=== PATIENT | female | born 1995 | race African-American/Black ===

== ENCOUNTER 2023-06-20 16:55 | Emergency (ER) | payer OTHER ==
[~2023-06-20] VITALS: Ht 180.3 cm; Wt 63.6 kg
[2023-06-20 17:19] VITALS: BP 124/73; PULSE 96; RESP 16; TEMP 97.8
== END 2023-06-20 19:15 | disposition left against medical advice (07) ==
LOC: EMS 16:56
DX: R20.0 Anesthesia of skin (principal); Z53.21 Procedure and treatment not carried out due to patient leaving prior to being seen by health care provider
CPT/HCPCS: 99281; Z7502

== ENCOUNTER 2023-10-02 12:55 | Emergency (ER) | payer OTHER ==
[~2023-10-02] VITALS: Ht 180.3 cm; Wt 59.1 kg
[2023-10-02 13:08] VITALS: BP 123/84; PULSE 88; RESP 18; TEMP 98.2
== END 2023-10-02 14:51 | disposition left against medical advice (07) ==
LOC: EMS 12:55
DX: M79.602 Pain in left arm (principal); M79.605 Pain in left leg; M54.9 Dorsalgia, unspecified; Z53.21 Procedure and treatment not carried out due to patient leaving prior to being seen by health care provider
CPT/HCPCS: 99281; Z7502

== ENCOUNTER 2023-10-19 02:07 | Emergency (ER) | payer OTHER ==
[~2023-10-19] VITALS: Ht 180.3 cm; Wt 63.6 kg
[2023-10-19 02:07] VITALS: BP 126/92; PULSE 73; RESP 16; TEMP 99.1
[2023-10-19] MEDS: TraMADol HCL 50 MG TABLET PO ONE (05:31)
[2023-10-19] MEDS ORDERED: CYCL-448 PO (06:00)
== END 2023-10-19 06:01 | disposition home or self-care (01) ==
LOC: EMS 02:08
DX: M79.18 Myalgia, other site (principal); F17.210 Nicotine dependence, cigarettes, uncomplicated; F12.90 Cannabis use, unspecified, uncomplicated; Z98.890 Other specified postprocedural states
CPT/HCPCS: 72040; 72072; 99284; Z7502; Z7610

== ENCOUNTER 2023-12-26 05:23 | Emergency (ER) | payer OTHER ==
[~2023-12-26] VITALS: Ht 165.1 cm; Wt 59.1 kg
[~2023-12-26 05:23] MED LIST: CYCL-448 PO
[2023-12-26 05:24] VITALS: TEMP 97.5
[2023-12-26] MEDS: SODIUM CHLORIDE 0.9% 1,000 ML IV ONE (06:18)
[2023-12-26 06:27] LABS: BASOPHILS % (AUTO) 2.5 % (0.0-2.0); EOSINOPHILS % (AUTO) 4.8 % (1.0-6.0); HEMATOCRIT 35.4 % (36-46); HEMOGLOBIN 11.8 g/dL (12.0-16.0); LYMPHOCYTES # (AUTO) 1.8 K/uL (1.0-4.8); LYMPHOCYTES % (AUTO) 36.6 % (22.0-44.0); MEAN CORPUSCULAR HEMOGLOBIN 29.7 pg (26.0-34.0); MEAN CORPUSCULAR HGB CONC 33.4 G/dL (31.0-37.0); MEAN CORPUSCULAR VOLUME 89 fL (80-100); MONOCYTES # (AUTO) 0.4 K/uL (0.1-1.0); MONOCYTES % (AUTO) 7.3 % (2.0-9.0); NEUTROPHILS # (AUTO) 2.5 K/uL (1.8-7.7); NEUTROPHILS % (AUTO) 48.8 % (40.0-70.0); PLATELET COUNT (AUTO) 284 K/uL (150-450); RED BLOOD CELL COUNT(AUTO) 3.99 MIL/uL (4.00-5.20); RED CELL DISTRIBUTION WIDTH 13.4 % (11.5-14.5)
[2023-12-26] MEDS: MethylPREDNISolone SOD SUCC 125 MG/2 ML VIAL IVP ONE (06:30)
[2023-12-26] MEDS: FAMOTIDINE 20 MG/2 ML VIAL IVP ONE (06:31)
[2023-12-26 06:38] LABS: ALCOHOL, BLOOD (SERUM) < 3 mg/dL (0-10); ANION GAP 5 mmol/L (8-16); CALCIUM, TOTAL 9.1 mg/dL (8.8-10.5); CARBON DIOXIDE 30 mmol/L (22-29); CHLORIDE 106 mmol/L (98-107); CREATININE 1.27 mg/dL (0.60-1.30); GLOMERULAR FILTR. RATE CALC > 60 mL/min (>60); GLUCOSE,RANDOM 112 mg/dL (70-110); POTASSIUM 3.7 mmol/L (3.5-5.1); SODIUM SERUM 141 mmol/L (136-145); UREA NITROGEN, BLOOD 10 mg/dL (7-18)
[2023-12-26 06:47] LABS: TROPONIN I-HIGH SENSITIVITY Less Than 4 ng/L (<51)
[2023-12-26 07:04] LABS: ALANINE AMINOTRANSFERASE 49 U/L (12-78); ALBUMIN 3.7 g/dL (3.4-5.0); ALKALINE PHOSPHATASE 49 U/L (46-116); ASPARTATE AMINOTRANSFERASE 33 U/L (15-37); BILIRUBIN,TOTAL 0.2 mg/dL (0.1-1.0); CREATINE KINASE, TOTAL ONLY 194 U/L (26-192); TOTAL PROTEIN, SERUM 6.9 g/dL (6.4-8.2)
[2023-12-26 07:15] VITALS: BP 107/67; PULSE 86; RESP 16
[2023-12-26] MEDS ORDERED: EPIN0.3P3 IM (08:09)
[2023-12-26] MEDS ORDERED: PRED-554 PO (08:09)
[2023-12-26] MEDS ORDERED: DIPH-1243 PO (08:09)
== END 2023-12-26 08:24 | disposition left against medical advice (07) ==
LOC: EMS 05:23
DX: T78.40XA Allergy, unspecified, initial encounter (principal); F17.210 Nicotine dependence, cigarettes, uncomplicated; F12.90 Cannabis use, unspecified, uncomplicated; Z98.890 Other specified postprocedural states; X58.XXXA Exposure to other specified factors, initial encounter
CPT/HCPCS: 99284; 96374; 96361; 96375; 80053; 82550; 84484; 84703; 85025; 36415; 93005; G0480; J3490; J2919; J7030

== ENCOUNTER 2025-03-13 02:00 | Emergency (ER) | payer OTHER ==
[~2025-03-13] VITALS: Ht 180.3 cm; Wt 59.1 kg
[~2025-03-13 02:00] MED LIST changes: +DIPH-1243 PO; +EPIN0.3P3 IM; +PRED-554 PO
[2025-03-13 02:06] VITALS: BP 124/81; TEMP 98.2; O2SAT 100
[2025-03-13] MEDS: IPRATROPIUM BROMIDE 0.5 MG/2.5 ML NEB SOLUTION NEB ONE (03:10)
[2025-03-13] MEDS: ALBUTEROL SULFATE 2.5 MG/0.5 ML NEB SOLUTION NEB ONE (03:10)
[2025-03-13 03:15] VITALS: PULSE 86; RESP 18; O2SAT 100
[2025-03-13] MEDS: ALBUTEROL SULFATE HFA 90 MCG/PUFF 8 GM INHALER IH ONE (05:03)
[2025-03-13 05:05] VITALS: PULSE 84; RESP 18; O2SAT 99
== END 2025-03-13 05:11 | disposition home or self-care (01) ==
LOC: EMS 03:30
DX: J45.909 Unspecified asthma, uncomplicated (principal); R06.02 Shortness of breath; F41.9 Anxiety disorder, unspecified; M25.512 Pain in left shoulder; F12.90 Cannabis use, unspecified, uncomplicated; F17.210 Nicotine dependence, cigarettes, uncomplicated; Z79.899 Other long term (current) drug therapy; Z79.52 Long term (current) use of systemic steroids
CPT/HCPCS: 99284; 71045; 94640; 72040; 73030; J3535; 94060; J7613